=== PATIENT | female | born 1960 | race Caucasian/White ===

== ENCOUNTER 2018-11-25 06:11 | Day surgery (SDC) | payer OTHER ==
[~2018-11-25] VITALS: Ht 165.1 cm; Wt 89.8 kg
[~2018-11-25 06:11] MED LIST: CALC625T23 PO; ESCI10TA10 PO; LEVO150T PO; MULT-208 PO; VITA1CAP PO; VITA400C43 PO
[2018-11-25] MEDS ORDERED: BUPIVACAINE/PF-EPI 0.5% 1:200K ONE (06:12)
[2018-11-25 07:07] VITALS: BP 144/96
[2018-11-25] MEDS ORDERED: LACTATED RINGERS 1,000 ML IV SCH (07:09)
[2018-11-25] MEDS ORDERED: LIDOCAINE-MPF 1%, 2ML ONE (07:16)
[2018-11-25] MEDS ORDERED: LIDOCAINE-MPF 1%, 2ML INFIL ONE (07:30)
[2018-11-25] MEDS ORDERED: PROPOFOL 10 MG/ML, 20ML ONE (08:30)
[2018-11-25] MEDS ORDERED: ROCURONIUM 10MG/ML,5ML ONE (08:30)
[2018-11-25] MEDS ORDERED: CEFAZOLIN 1,000 MG ONE (08:31)
[2018-11-25] MEDS ORDERED: SUCCINYLCHOLINE 20 MG/ML, 10ML ONE (08:32)
[2018-11-25] MEDS ORDERED: MIDAZOLAM 1 MG/ML, 2ML ONE (08:40)
[2018-11-25] MEDS ORDERED: BUPIVACAINE/PF-EPI 0.5% 1:200K INFIL ONE (08:52)
[2018-11-25] MEDS ORDERED: FENTANYL PF 100 MCG/2ML ONE ×3 (08:54→09:44)
[2018-11-25] MEDS ORDERED: HYDROmorphone 2 MG/ML, 1ML IVPush PRN (09:00)
[2018-11-25] MEDS ORDERED: HYDROcodone/APAP 7.5-325MG/15ML UDC PO PRN (09:00)
[2018-11-25] MEDS ORDERED: MORPHINE SULFATE 4 MG/ML, 1ML IVPush PRN (09:00)
[2018-11-25] MEDS ORDERED: OXYcodone 5 MG/5 ML ORAL.SOL UDC PO PRN (09:00)
[2018-11-25] MEDS ORDERED: MEPERIDINE/PF 25MG/0.5ML IVPush PRN (09:00)
[2018-11-25] MEDS ORDERED: OXYcodone 5 MG/5 ML ORAL.SOL UDC ONE (09:44)
[2018-11-25] MEDS: FENTANYL PF 100 MCG/2ML IV PRN ×4 (09:47→10:20)
[2018-11-25] MEDS ORDERED: hydrALAzine 20 MG/ML, 1ML ONE (09:58)
[2018-11-25] MEDS ORDERED: LABETALOL 5MG/ML, 20ML IV PRN (10:00)
[2018-11-25] MEDS ORDERED: hydrALAzine 20 MG/ML, 1ML IV PRN (10:00)
[2018-11-25] MEDS ORDERED: KETOROLAC 30 MG/1 ML ONE (11:14)
== END 2018-11-25 13:15 | disposition home or self-care (01) ==
LOC: OUT 06:11
PROVIDERS: ATTEND Surgery
DX: K43.0 Incisional hernia with obstruction, without gangrene (principal); E03.9 Hypothyroidism, unspecified; Z98.890 Other specified postprocedural states; Z85.3 Personal history of malignant neoplasm of breast; Z90.11 Acquired absence of right breast and nipple; Z88.8 Allergy status to other drugs, medicaments and biological substances; Z91.040 Latex allergy status; Z72.89 Other problems related to lifestyle; Z87.891 Personal history of nicotine dependence
CPT/HCPCS: 49653; C1781; J0330; J0360; J0690; J2250; J2704; J3010; J3490; J7120